=== PATIENT | female | born 1965 | race Caucasian/White ===

== ENCOUNTER 2018-06-20 12:06 | Inpatient (IN) | payer BC ==
[~2018-06-20] VITALS: Ht 157.5 cm; Wt 57.7 kg
[2018-06-20 04:00] VITALS: BP 144/69
[~2018-06-20 12:06] MED LIST: LOSARTAN POTASS50 MG PO; OMEPRAZOLE40 MG PO; SULFAMETHOXAZO1 EAC1 PO; URIBEL CAPSULE1 EACH PO
--- OUTSIDE RECORDS SUMMARY | 2018-06-20 12:09 | XMS REPORT ---
Author Author [facility] Address Unknown Phone Unavailable Care Team Providers Care Informatics Spec Name Role Phone Unavailable Unavailable Payers Payer Name Policy Type Policy Number Effective Date Expiration Date Problems This patient has no known problems. Allergies, Adverse Reactions, Alerts Allergy Name Allergy Type Status Severity Reaction(s) Onset Date Inactive Date Treating Clinician Comments codeine DA Active U 2017-11-04 00:00:00 hydrocodone DA Active U 2017-11-04 00:00:00 cefuroxime DA Active U 2017-11-04 00:00:00 levofloxacin DA Active U 2017-11-04 00:00:00 codeine DA Active U 2016-02-04 00:00:00 hydrocodone DA Active U 2016-02-04 00:00:00 cefuroxime DA Active U 2016-02-04 00:00:00 levofloxacin DA Active U 2016-02-04 00:00:00 Medications This patient has no known medications.
[2018-06-20 12:45] LABS: CLARITY,URINE CLEAR (CLEAR); COLOR,URINE YELLOW (YELLOW)
[2018-06-20 12:46] LABS: BILIRUBIN,URINE NEGATIVE (NEGATIVE); KETONES,URINE NEGATIVE (NEGATIVE); LEUKOCYTE ESTERASE ,URINE TRACE (NEGATIVE); NITRITE,URINE NEGATIVE (NEGATIVE); PROTEIN,URINE DIPSTICK NEGATIVE (NEGATIVE); URINE UROBILINOGEN 0.2 mg/dL (0.2 - 1)
[2018-06-20 12:57] LABS: BACTERIA,URINE FEW /HPF; EPITHELIAL CELLS,URINE FEW /LPF
[2018-06-20] MEDS ORDERED: SODIUM CHLORIDE 0.9% 1000ML 1,000 ML IV ONE (13:15)
[2018-06-20] MEDS ORDERED: ONDANSETRON HCL INJ 2MG/ML 2ML 2 MG/ML VIAL IV PRN (13:15)
[2018-06-20] MEDS ORDERED: MEROPENEM 1GRAM 1 GM in SODIUM CHLORIDE 0.9% 100 ML 100 ML IV SCH (13:15)
[2018-06-20 14:36] LABS: BASOPHILS # (AUTO) 0.1 (0.0-0.1); BASOPHILS % 0.5 % (0.0-1.0); EOSINOPHILS # (AUTO) 0.1 (0.0-0.4); EOSINOPHILS % 0.6 % (0.0-6.0); HEMATOCRIT 42.3 % (34.2-44.1); HEMOGLOBIN 14.3 g/dL (12.0-16.0); LYMPHOCYTES # (AUTO) 3.2 (1.0-3.2); LYMPHOCYTES % 32.1 % (18.0-39.1); MEAN CORPUSCULAR HEMOGLOBIN 31.7 pg (28-32); MEAN CORPUSCULAR HGB CONC 33.8 g/dL (31-35); MEAN CORPUSCULAR VOLUME 93.8 fL (81-99); MONOCYTES # (AUTO) 0.6 (0.2-0.8); MONOCYTES % 5.9 % (4.4-11.3); NEUTROPHILS # (AUTO) 6.1 (2.1-6.9); NEUTROPHILS % 60.5 % (38.7-80.0); PLATELET COUNT 307 x10e3/uL (140-360); RED BLOOD COUNT 4.51 x10e6/uL (3.6-5.1); RED CELL DISTRIBUTION WIDTH 12.6 % (11.7-14.4)
[2018-06-20] MEDS: MEROPENEM 1GM 100 ML IV SCH ×2 (14:42→22:39)
[2018-06-20 14:50] LABS: ALANINE AMINOTRANSFERASE 13 IU/L (0-55); ALBUMIN 3.6 g/dL (3.5-5.0); ALKALINE PHOSPHATASE 88 IU/L (40-150); ANION GAP 11.6 mmol/L (8-16); BLOOD UREA NITROGEN 8 mg/dL (7-26); BUN/CREATININE RATIO 10 (6-25); CALCIUM 9.4 mg/dL (8.4-10.2); CARBON DIOXIDE 27 mmol/L (22-29); CHLORIDE 106 mmol/L (98-107); CREATININE, SERUM 0.79 mg/dL (0.57-1.11); EST GLOMERULAR FILTRATION RATE > 60 ML/MIN (60-); GLUCOSE 98 mg/dL (74-118); POTASSIUM 3.6 mmol/L (3.5-5.1); SODIUM 141 mmol/L (136-145)
--- NOTE | 2018-06-20 15:42 | Diagnostic Imaging Report ---
EXAM: CT ABDOMEN AND PELVIS without IV CONTRAST DATE: 06/20/2018 Time stamp on Exam: 1:40 PM INDICATION: Urinary tract infection COMPARISON: None TECHNIQUE: The abdomen and pelvis were scanned using a multidetector helical scanner. Coronal and sagittal reformations were obtained. Routine protocol performed. Technique manipulation was accomplished to maintain the lowest effective dose to the patient. IV Contrast: None Oral Contrast: None Radiation Dose: Total DLP 194.04 mGy*cm Estimated effective dose: DLP x 0.015 x size factor FINDINGS: LOWER THORAX: No consolidations with calcified granulomas in the right middle lobe, right lower lobe and left lower lobe. LIVER: No masses with calcified granulomas present. BILIARY: The gallbladder is absent. No ductal dilatation. SPLEEN: No masses with a calcified splenic granuloma. PANCREAS: No masses ADRENALS: Fullness in the left adrenal gland with low-density CT attenuation compatible with an adenoma. KIDNEYS: No hydronephrosis, stones or mass. GI TRACT: No distention, wall thickening or evidence of obstruction. VESSELS: Atherosclerotic calcification. Small calcification in the medial aspect of the right kidney is vascular. PERITONEUM/RETROPERITONEUM: No free air or fluid LYMPH NODES: No lymphadenopathy REPRODUCTIVE ORGANS: Unremarkable BLADDER: Unremarkable SOFT TISSUES: Unremarkable BONES: Disc space narrowing at L5-S1. IMPRESSION: 1. No acute abnormality within the abdomen or pelvis. 2. Left adrenal lesion likely a benign adrenal adenoma. 3. Evidence of old granulomatous disease. Signed by: Dr. Derek Grande DO on 06/20/2018 3:39 PM
[2018-06-20] MEDS ORDERED: DIAZEPAM10 MG PO (17:31)
--- NOTE | 2018-06-20 18:58 | NUR ---
Walking rounds with AUSTIN Shaw. No distress noted at this time.
[2018-06-20 21:39] VITALS: BP 136/75
[2018-06-20 21:40] VITALS: BP 136/75
[2018-06-20] MEDS ORDERED: SODIUM CHLORIDE 0.9% 250ML 250 ML ONE (22:21)
[2018-06-20] MEDS ORDERED: ACETAMINOPHEN 325 MG TAB PO PRN (23:45)
[2018-06-20] MEDS ORDERED: MAGNESIUM HYDROXIDE 30 ML UDC PO PRN (23:45)
[2018-06-20] MEDS ORDERED: MAGNESIUM/ALUMINUM/SIMETHICONE 30 ML UDC PO PRN (23:45)
[2018-06-20] MEDS ORDERED: ZOLPIDEM TARTRATE 5 MG TAB PO PRN (23:45)
[2018-06-20] MEDS ORDERED: PROMETHAZINE 12.5MG/ NACL 0.9% 12.5 MG/50 ML BAG IV PRN (23:45)
[2018-06-21 04:00] VITALS: BP 109/74
[2018-06-21 05:14] LABS: BASOPHILS # (AUTO) 0.1 (0.0-0.1); BASOPHILS % 0.8 % (0.0-1.0); EOSINOPHILS # (AUTO) 0.1 (0.0-0.4); EOSINOPHILS % 1.3 % (0.0-6.0); HEMATOCRIT 39.2 % (34.2-44.1); HEMOGLOBIN 13.2 g/dL (12.0-16.0); LYMPHOCYTES # (AUTO) 3.7 (1.0-3.2); LYMPHOCYTES % 40.6 % (18.0-39.1); MEAN CORPUSCULAR HEMOGLOBIN 31.8 pg (28-32); MEAN CORPUSCULAR HGB CONC 33.7 g/dL (31-35); MEAN CORPUSCULAR VOLUME 94.5 fL (81-99); MONOCYTES # (AUTO) 0.6 (0.2-0.8); MONOCYTES % 6.6 % (4.4-11.3); NEUTROPHILS # (AUTO) 4.6 (2.1-6.9); NEUTROPHILS % 50.4 % (38.7-80.0); PLATELET COUNT 273 x10e3/uL (140-360); RED BLOOD COUNT 4.15 x10e6/uL (3.6-5.1); RED CELL DISTRIBUTION WIDTH 12.7 % (11.7-14.4)
[2018-06-21 05:33] LABS: ALANINE AMINOTRANSFERASE 9 IU/L (0-55); ALBUMIN 3.3 g/dL (3.5-5.0); ALBUMIN/GLOBULIN RATIO 1.1 (0.8-2.0); ALKALINE PHOSPHATASE 75 IU/L (40-150); ANION GAP 9.9 mmol/L (8-16); BLOOD UREA NITROGEN 11 mg/dL (7-26); BUN/CREATININE RATIO 13 (6-25); CALCIUM 9.3 mg/dL (8.4-10.2); CARBON DIOXIDE 27 mmol/L (22-29); CHLORIDE 107 mmol/L (98-107); CREATININE, SERUM 0.84 mg/dL (0.57-1.11); EST GLOMERULAR FILTRATION RATE > 60 ML/MIN (60-); GLUCOSE 89 mg/dL (74-118); POTASSIUM 3.9 mmol/L (3.5-5.1); SODIUM 140 mmol/L (136-145)
[2018-06-21] MEDS: MEROPENEM 1GM 100 ML IV SCH ×3 (05:43→21:05)
--- NOTE | 2018-06-21 07:00 | NUR ---
RCD PT AT BED PT IS ALERT AND ORIENTED PT RESTING ON BED NO SIGNS OF ANY DISTRESS NOTED IV PATENT BED LOW AND LOCKED CALL LIGHT IN REACH
[2018-06-21 08:06] VITALS: BP 154/71
--- NOTE | 2018-06-21 09:02 | NUR ---
PAGED DR BLANCO TO GET THE ORDER TO RENEW HOME MEDS
--- NOTE | 2018-06-21 09:03 | NUR ---
DR BLANCO RETURNED CALL AND GOT THE ORDER TO RENEW THE MEDICATIONS
[2018-06-21 09:05] VITALS: BP 154/71
[2018-06-21] MEDS ORDERED: NON-FORMULARY MEDICATION (Diazepam 10 MG) PO SCH (09:15)
[2018-06-21] MEDS ORDERED: DIAZEPAM 5 MG TAB PO PRN (09:15)
[2018-06-21] MEDS: LOSARTAN POTASSIUM 25 MG TAB PO SCH (10:00)
[2018-06-21] MEDS: PANTOPRAZOLE SOD 40 MG TABEC PO SCH (10:00)
--- NOTE | 2018-06-21 10:00 | NUR ---
PT IS SMOKER NOTIFIED DR BLANCO HE SAID PT HERE FOR UTI TREATMENT SHE DONT NEED NICOTINE PATCH
[2018-06-21 11:50] VITALS: BP 164/68
--- NOTE | 2018-06-21 13:54 | Diagnostic Imaging Report ---
Exam: Right hand radiographs-3 views; left hand radiographs-3 views History: Arthralgia. Comparison: None. Findings: No evidence of acute fracture, malalignment, or soft tissue abnormality. There are mild degenerative changes in the bilateral first carpometacarpal and scattered interphalangeal joints with joint space narrowing. There is an erosion at the head of the right first metacarpal. No surrounding soft tissue edema. No evidence of periarticular osteopenia. Impression: No acute radiographic abnormality. Mild bilateral hand osteoarthritis as above. Nonspecific erosion at the head of the right first metacarpal. No other specific findings of erosive arthropathy. Suggest correlation with laboratory results. Signed by: Dr. Emily Chacko MD on 06/21/2018 1:50 PM
[2018-06-21] MEDS: INDOMETHACIN 25 MG CAP PO SCH ×2 (14:00→21:05)
[2018-06-21] MEDS ORDERED: ONDANSETRON HCL 4 MG ORAL DISINTEGRATING TAB PO PRN (14:30)
--- NOTE | 2018-06-21 15:52 | NUR ---
CASE MANAGEMENT ASSESSMENT Nurse Auditor to bedside to discuss plan of care with patient/family. CM/SW role and care transitions discussed. Anticipated discharge plan discussed along with duration of care. CM/SW discussed patients right to make decisions in care. CM/SW work hours given. Patient lives: alone Admit/Transfer: thru ED Hospital/ER visits since last admit: 0 POA/Emergency contact: daughter Cookie Gaxiola [phone] Current/Previous Home Health: none PCP/Follow-up Care: Dr. Durán - PCP; advised pt to follow up with one of her MDs within 7 days of discharge. pt states she has follow up appointment with Dr. Silverman in 2 weeks. Current/Previous DME: none Medications (referring to index hospitalization or the first time you were in the hospital) a. Were changes made in your medications when you were in the hospital on [date of index hospitalization]? n/a b. Did you understand the changes? n/a c. Were you able to obtain your new medications right away? n/a d. Were you able to take your medications like the doctor wanted you to? n/a e. Did the hospital give you an accurate, easy to understand list of medications when you left? n/a Scale of 1-10 how comfortable does patient feel with disease management in outpatient settin Other Services: none Employment Status: employed at [employer] Areas of Concerns: UTI Referral Needs: none Education Needs: medical management, antibiotics IMM/PATEL given and signed (if applicable): n/a Goal for discharge: home CM/SW left business card at the bedside with contact information. Name and number was also written on the patients whiteboard. Patient verbalized understanding of discussion. CM will follow-up with ongoing discharge and transition of care needs.
[2018-06-21 15:58] VITALS: BP 175/73
--- NOTE | 2018-06-21 18:40 | NUR ---
PT RESTING ON BED BED SIDE REPORT GIVEN TO ONCOMING NURSE
--- NOTE | 2018-06-21 19:25 | History and Physical ---
ROOM: Emergency room. REASON FOR ADMISSION: Ms. Hill is a 52-year-old woman with chronic and recurring urinary tract infections, who presents to the emergency room with a complaint of fever at home. HISTORY OF PRESENT ILLNESS: The patient notes that she has had repeated urinary tract infection, recently finished a course of Macrobid, which was apparently then changed to penicillin VK, but developed recurrent fever at home. PAST MEDICAL HISTORY: Significant for hysterectomy and cholecystectomy. She has hypertension. HOME MEDICATIONS: Include losartan 50 mg daily and omeprazole 40 mg daily. PAST SURGICAL HISTORY: She had cystoscopy at [facility] on November 25, 2009, for microhematuria. PERSONAL AND SOCIAL HISTORY: The patient continues to smoke. REVIEW OF SYSTEMS: MUSCULOSKELETAL: The patient adds that she has had some aches and pains in her hands and fallen down recently, which she thinks she twisted her back. CARDIOVASCULAR: Negative. PHYSICAL EXAMINATION: GENERAL: At this time shows an anxious woman, normotensive, afebrile. HEAD, EYES, EARS, NOSE, AND THROAT: Unremarkable. NECK: No jugular venous distention. THORAX: Heart sounds S1 and S2 are equal. No murmurs. LUNGS: Clear. ABDOMEN: Protuberant. Normal bowel sounds. Nontender. EXTREMITIES: Show the hands with some joint swelling at the MIPs on both hands. LABORATORY DATA: Initial laboratory studies were relatively unremarkable. White cell count 10.[address] scan of the abdomen is only remarkable for possible benign adrenal adenoma and urinalysis shows 6-10 red cells and 11-20 white cells. ASSESSMENT: 1. Recurrent urinary tract infection. 2. Hypertension. 3. Arthralgias, etiology not clear. No previous rheumatologic diagnosis. PLAN: The patient is being given fluids and broad-spectrum antibiotic coverage and will be seen in consultation by Dr. Silverman. Further management will be based on clinical course. MD GARCIA Paredes/KIKI /[id number] cc: MD Kaelyn Logan MD
[2018-06-21 20:00] VITALS: BP 131/79
[2018-06-22] VITALS: BP 129/73
[2018-06-22] MEDS: MEROPENEM 1GM 100 ML IV SCH (06:13)
[2018-06-22] MEDS: LOSARTAN POTASSIUM 25 MG TAB PO SCH (08:13)
[2018-06-22] MEDS: INDOMETHACIN 25 MG CAP PO SCH (08:13)
[2018-06-22] MEDS: PANTOPRAZOLE SOD 40 MG TABEC PO SCH (08:13)
[2018-06-22 08:18] VITALS: BP 150/65
[2018-06-22 08:30] VITALS: BP 150/65
[2018-06-22] MEDS ORDERED: NON-FORMULARY MEDICATION (Losartan Potassium 50 MG) PO SCH (09:00)
[2018-06-22 11:54] VITALS: BP 155/68
--- NOTE | 2018-06-24 05:14 | Discharge Summary ---
HISTORY: Ms. Hill is a complex 52-year-old woman with recurring urinary tract infections, who presented to the Emergency Room with dysuria, having just finished course of antibiotics. HOSPITAL COURSE: She was started on meropenem in the Emergency Room. The next morning, even in the Emergency Room complained of swelling of her joints in her hands, painful. By the , this was worse and was also complaining of nicotine withdrawal. She was seen by Dr. Silverman. Urine cultures were obtained and although there were red cells and white cells in the urine, cultures were negative. Blood cultures negative. Urine cultures negative. To her hand pain, she had x-rays performed, which showed osteoarthritis. Rheumatoid factor and sedimentation rate were drawn. Sedimentation rate is normal, but rheumatoid factor still has not returned. She was discharged home, given indomethacin 25 mg b.i.d. p.r.n. joint pain. She will follow up with her family doctor and Dr. Silverman on a regular basis. DISCHARGE DIAGNOSES: 1. Recurrent urinary tract infection. 2. Osteoarthritis. 3. Nicotine withdrawal. MD GARCIA Paredes/KIKI /[id number] cc: Lowell Silverman MD
== END 2018-06-22 12:19 | disposition home or self-care (01) | DRG 690 ==
LOC: ER 12:06 → ERHOLD 14:59 → MED/SURG2 21:40
PROVIDERS: ADMIT Internal Medicine Cardiovascular Disease; ATTEND Internal Medicine Cardiovascular Disease
DX: N30.91 Cystitis, unspecified with hematuria (principal); F17.203 Nicotine dependence unspecified, with withdrawal; M19.90 Unspecified osteoarthritis, unspecified site; I10 Essential (primary) hypertension; K21.9 Gastro-esophageal reflux disease without esophagitis
CPT/HCPCS: 36415; 74176; 80053; 81001; 84550; 85025; 85651; 86200; 86431; 87040; 87086; 99284; J2405; J7030; J7050

== ENCOUNTER 2019-02-09 07:26 | Emergency (ER) | payer BC ==
[~2019-02-09] VITALS: Ht 157.5 cm; Wt 57.6 kg
[~2019-02-09 07:26] MED LIST changes: +DIAZEPAM10 MG PO
[2019-02-09] MEDS ORDERED: CLONIDINE HCL 0.1 MG TAB PO ONE (08:30)
[2019-02-09] MEDS ORDERED: LOSARTAN POTASSIUM 100 MG TAB PO STA (08:38)
[2019-02-09] MEDS ORDERED: KETOROLAC TROMETHAMINE 60 MG/2 ML VIAL IM ONE (08:45)
[2019-02-09] MEDS ORDERED: HYDROCHLOROTHIAZIDE 25 MG TAB PO ONE (08:45)
[2019-02-09] MEDS ORDERED: DEXAMETHASONE SOD PHOS 10 MG/1 ML VIAL IM ONE (08:45)
[2019-02-09] MEDS ORDERED: DIAZEPAM 5 MG TAB PO ONE (08:45)
[2019-02-09 10:47] VITALS: BP 148/70
== END 2019-02-09 10:49 | disposition home or self-care (01) ==
LOC: ER 07:26
DX: I10 Essential (primary) hypertension (principal); M54.12 Radiculopathy, cervical region
CPT/HCPCS: 99282; J1100; J1885

== ENCOUNTER 2021-01-02 09:49 | Emergency (ER) | payer BC ==
[~2021-01-02] VITALS: Ht 157.5 cm; Wt 57.6 kg
== END 2021-01-02 11:48 | disposition home or self-care (01) ==
LOC: ER 10:10
DX: R07.89 Other chest pain (principal); S20.212A Contusion of left front wall of thorax, initial encounter; W17.89XA Other fall from one level to another, initial encounter; Y92.008 Other place in unspecified non-institutional (private) residence as the place of occurrence of the external cause; I10 Essential (primary) hypertension; I25.10 Atherosclerotic heart disease of native coronary artery without angina pectoris; K21.9 Gastro-esophageal reflux disease without esophagitis; I73.00 Raynaud's syndrome without gangrene; I25.2 Old myocardial infarction
CPT/HCPCS: 71101; 99283

== ENCOUNTER → 2024-10-20 | Day surgery (SDC) | payer BC ==
[~2024-10-20] MED LIST changes: +ALREX5 ML OP; +AMOX TR-K CLV1 EAC2 PO; +ANORO ELLIPTA1 EACH INH; +ASPIRIN81 MG PO; +BRAIN MIGHT-DH1 EACH PO; +CELEBREX100 MG PO; +CO Q1060 MG PO; +COREG12.5 MG PO; +DEXAMETHASONE SOD PHOS INJ 4 MG/ML SDV ONE; +DOXYCYCLINE HY100 MG PO; +FENTANYL CITRATE/PF 100MCG/2 ML INJ ONE; +FLONASE ALLERG9.9 ML INH; +GABAPENTIN100 MG PO; +LIDOCAINE HCL 2% LOCAL INJ 5 ML SDV VIAL INJ ONE; +LOSARTAN-HCTZ1 EACH PO; +METFORMIN HCL500 M1 PO; +ONDANSETRON HCL INJ 2MG/ML 2ML 2 MG/ML VIAL ONE; +ONDANSETRON ODT4 MG PO; +OPTASE MGD ADVA10 ML OP; +PHENAZOPYRIDINE HCL 100 MG TAB ONE; +POTASSIUM99 M1 PO; +PRAVASTATIN SOD10 MG PO; +PROBIOTIC & AC1 EACH PO; +PROPOFOL IV EMULSION 10 MG/ML 20 ML VIAL ONE; +TIZANIDINE HCL4 MG PO; +ULTRAM 50MG50 MG PO; +VENTOLIN HFA18 GM INH; +VIT B PO; +[UNRECOGNIZED DRUG - OTHER] OP; +[UNRECOGNIZED DRUG - OTHER] PO; +[UNRECOGNIZED DRUG - OTHER] PO; +tumeric PO; +vit c PO; +vit d3 PO
[2024-10-20 13:59] LABS: BASOPHILS % 0.5 % (0.0-1.0); EOSINOPHILS % 2.0 % (0.0-6.0); LYMPHOCYTES % 38.8 % (18.0-39.1); MONOCYTES % 8.7 % (4.4-11.3); NEUTROPHILS % 49.7 % (38.7-80.0); RED CELL DISTRIBUTION WIDTH 12.1 % (11.7-14.4)
[2024-10-20 14:16] LABS: EST GLOMERULAR FILTRATION RATE 92.0 ML/MIN (>=60)
[2024-10-20] MEDS: GENTAMICIN 80MG/NS 100 ML 200 ML IV ONE (14:35)
[2024-10-20] MEDS: LACTATED RINGER'S 1,000 ML ONE (14:35)
[2024-10-20 15:00] VITALS: TEMP 97.2
[2024-10-20 15:50] VITALS: BP 154/90; PULSE 78; RESP 16; O2SAT 98
== END | disposition home or self-care (01) ==
LOC: OR 13:07
PROVIDERS: ATTEND Urology
DX: N30.91 Cystitis, unspecified with hematuria (principal); N81.10 Cystocele, unspecified; N81.6 Rectocele; N95.2 Postmenopausal atrophic vaginitis; I10 Essential (primary) hypertension; E78.2 Mixed hyperlipidemia; I25.10 Atherosclerotic heart disease of native coronary artery without angina pectoris; I25.2 Old myocardial infarction; M06.9 Rheumatoid arthritis, unspecified; E55.9 Vitamin D deficiency, unspecified; R73.03 Prediabetes; K21.9 Gastro-esophageal reflux disease without esophagitis; M35.00 Sjogren syndrome, unspecified; J44.9 Chronic obstructive pulmonary disease, unspecified; Z95.5 Presence of coronary angioplasty implant and graft; Z79.899 Other long term (current) drug therapy; Z79.82 Long term (current) use of aspirin; Z79.84 Long term (current) use of oral hypoglycemic drugs
CPT/HCPCS: 36415; 51600; 52260; 74420; 80048; 85025; 87086; 93005; C1758; J1100; J1580; J2003; J2405; J2704; J3010; J7121